=== PATIENT | male | born 1945 | race Hispanic/Latino ===

== ENCOUNTER 2017-04-09 18:29 | Emergency (ER) | payer MEDICARE ==
[2017-04-09 18:36] VITALS: TEMP 97.5; BMI 26.6
[2017-04-09] MEDS ORDERED: TDAP Vaccine 0.5 mL Syr IM ONE (19:09)
--- NOTE | 2017-04-09 19:13 | ED PDOC ---
Arrival/HPI - General Chief Complaint: Trauma Time Seen by Provider: 04/09/17 19:09 Historian: Patient - History of Present Illness Narrative History of Present Illness (Text): 04/09/17 19:11 Pt is a 71 yo male who today had a few drinks,fell striking his face.No LOC.Pt broke his denture and lacerated his lower lip,struck his face but otherwise has no other injuries Time/Duration: Prior to Arrival Symptom Onset: Sudden Symptom Course: Unchanged Past Medical History - Provider Review Nursing Documentation Reviewed: Yes - Travel History Have you recently traveled outside [place] w/in the past 3 mons?: No - Patient History Narrative Patient History: PMH signif for HTN,Hyperlipidemia and DM - Infectious Disease Hx of Infectious Diseases: None - Cardiac Hx Cardiac Disorders: Yes Hx Hyperlipemia: Yes Hx Hypertension: Yes - Pulmonary Hx Respiratory Disorders: No - Neurological Hx Neurological Disorder: No - HEENT Hx HEENT Disorder: Yes (eyeglasses) - Renal Hx Renal Disorder: No - Endocrine/Metabolic Hx Endocrine Disorders: Yes Hx Diabetes Mellitus Type 2: Yes - Hematological/Oncological Hx Blood Disorders: No - Integumentary Hx Dermatological Disorder: No - Musculoskeletal/Rheumatological Hx Musculoskeletal Disorders: No - Gastrointestinal Hx Gastrointestinal Disorders: Yes (obese) Other/Comment: Small instestine rupture - Genitourinary/Gynecological Hx Genitourinary Disorders: No - Psychiatric Hx Psychophysiologic Disorder: No Hx Substance Use: No - Anesthesia Hx Anesthesia: No Hx Anesthesia Reactions: No (UNKNOWN) Hx Malignant Hyperthermia: No (UNKNOWN) Family/Social History - Physician Review Nursing Documentation Reviewed: Yes Family/Social History: No Known Family HX Smoking Status: Heavy Smoker > 10 Cigarettes Daily Hx Alcohol Use: Yes (occasional beer and shots) Frequency of alcohol use: Socially Hx Substance Use: No Allergies/Home Meds Allergies/Adverse Reactions: Allergies No Known Allergies Allergy (Verified 04/09/17 18:45) As per daughter, Estefania Chilel. Home Medications: Home Meds Medication Instructions Recorded Confirmed MetFORMIN [glucoPHAGE] 500 mg PO BID 03/25/16 04/09/17 Metoprolol Tartrate [Lopressor] 50 mg PO BID 03/25/16 04/09/17 Simvastatin [Zocor] 20 mg PO DAILY 03/25/16 04/09/17 Review of Systems - Review of Systems Constitutional: Normal Eyes: Normal ENT: Normal Respiratory: Normal Cardiovascular: Normal Gastrointestinal: Normal Musculoskeletal: Normal Skin: Normal Neurological: Normal Endocrine: Normal Hemo/Lymphatic: Normal Physical Exam - Physical Exam Physical Exam Limitations: Altered Mental Status Vital Signs Reviewed: Yes Vital Signs Temp Pulse Resp BP Pulse Ox 04/09/17 21:20 90 20 158/75 H 96 04/09/17 18:35 97.5 F L 121 H 22 161/86 H 95 Temperature: Afebrile Blood Pressure: Normal Pulse: Regular Respiratory Rate: Normal Appearance: Positive for: Comfortable Pain Distress: None Mental Status: Positive for: Alert and Oriented X 3 - Systems Exam Head: Present: Tenderness, Swelling, Laceration, Other (pt with numerous abrasions and STS to midface) Pupils: Present: PERRL Extroacular Muscles: Present: EOMI Conjunctiva: Present: Normal Ears: Present: Normal Mouth: Present: Moist Mucous Membranes, Other (pt is edentulous with numerous superficial lacs to lower lip) Nose (Internal): Present: No Active Bleeding, Edematous. No: Septal Hematoma Neck: Present: Normal Range of Motion Respiratory/Chest: Present: Clear to Auscultation, Good Air Exchange Cardiovascular: Present: Regular Rate and Rhythm Abdomen: Present: Normal Bowel Sounds. No: Tenderness, Rebound, Guarding Back: Present: Normal Inspection. No: Midline Tenderness Upper Extremity: Present: Normal Inspection Lower Extremity: Present: Normal Inspection Neurological: Present: GCS=15, CN II-XII Intact, Speech Normal Medical Decision Making Reassessment Condition: Re-examined, Unchanged - RAD Interpretation Narrative RAD Interpretations (Text): 04/10/17 01:30 CT head-neg,? nasal fx Radiology Orders: 04/09/17 19:15 HEAD W/O CONTRAST [CT] Stat [employer] Operator: Radiologist - Medication Orders Current Medication Orders: Discontinued Medications Tetanus/Reduced Diphtheria/Acell Pertussis (Boostrix Vaccine Inj) 0.5 ml IM .ONCE ONE Stop: 04/09/17 19:10 Last Admin: 04/09/17 19:51 Dose: 0.5 ml MAR Immunization Data Document 04/09/17 19:51 OCS (Rec: 04/09/17 19:51 OCS [id number]) Immunization Data Vaccine Lot Number [id number] Vaccine Expiration Date 05/15/19 Site Given Left Deltoid Route Intramuscular Disposition/Present on Arrival - Present on Arrival Any Indicators Present on Arrival: No History of DVT/PE: No History of Uncontrolled Diabetes: No Urinary Catheter: No History of Decub. Ulcer: No History Surgical Site Infection Following: None - Disposition Have Diagnosis and Disposition been Completed?: No Diagnosis: Blunt head injury, Nasal bones, closed fracture Disposition: HOME/ ROUTINE Disposition Time: 19:14 Patient Plan: Discharge Condition: GOOD Discharge Instructions (ExitCare): Nasal Fracture (ED), Head Injury (ED) Additional Instructions: ice packs to painful areas Referrals: Fabian Shea DO [Primary Care Provider] - Follow up with primary Forms: [facility] [employer] [facility] (Vietnamese)
--- NOTE | 2017-04-09 21:44 | CT ---
EXAM: CT Head Without Intravenous Contrast CLINICAL HISTORY: 71 years old, male; Injury or trauma; Fall; Initial encounter; Blunt trauma (contusions or hematomas); Additional info: Head trauma TECHNIQUE: Axial computed tomography images of the head/brain without intravenous contrast. All CT scans at this facility use one or more dose reduction techniques, viz.: automated exposure control; ma/kV adjustment per patient size (including targeted exams where dose is matched to indication; i.e. head); or iterative reconstruction technique. COMPARISON: No relevant prior studies available. FINDINGS: Brain: No acute intracranial hemorrhage. Age-appropriate periventricular white matter disease. No edema. Ventricles: Age-appropriate ventriculomegaly. Bones: Possible nasal bone fracture inadequately visualized in the current examination. Sinuses: Unremarkable as visualized. No acute sinusitis. Mastoid air cells: Unremarkable as visualized. No mastoid effusion. IMPRESSION: No acute intracranial hemorrhage, or suspicious mass effect.
[2017-04-09 21:48] VITALS: BP 158/75; PULSE 90; RESP 20; O2SAT 96
--- NOTE | 2017-04-10 14:13 | CARD ---
APPROVED REPORT EKG Measurement Heart [id number] <Conclusion> Sinus tachycardia NSSTW changes
== END 2017-04-09 21:20 | disposition home or self-care (01) ==
LOC: ED 18:29
DX: S02.2XXA Fracture of nasal bones, initial encounter for closed fracture (principal); S09.90XA Unspecified injury of head, initial encounter; W19.XXXA Unspecified fall, initial encounter; E11.9 Type 2 diabetes mellitus without complications; Z79.84 Long term (current) use of oral hypoglycemic drugs; E78.5 Hyperlipidemia, unspecified; I10 Essential (primary) hypertension; F17.210 Nicotine dependence, cigarettes, uncomplicated; Z23 Encounter for immunization

== ENCOUNTER 2018-10-02 09:23 | Outpatient (CLI) | payer MEDICARE | END 2018-10-02 09:24 | disposition home or self-care (01) | LOC: LAB 09:23 ==